=== PATIENT | male | born 1965 | race African-American/Black ===

== ENCOUNTER 2019-08-03 16:47 | Emergency (ER) | payer OTHER ==
[~2019-08-03] VITALS: Ht 175.3 cm; Wt 68.0 kg
[2019-08-03 16:47] VITALS: BP 150/80
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
[2019-08-03] MEDS ORDERED: LET 3ml Soln TOPIC ONE ×2 (17:00→18:49)
[2019-08-03] MEDS ORDERED: Tetanus/Diptheria/Pertussis IM ONE (17:00)
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
[2019-08-03 17:50] LABS: HEMATOCRIT 41.2 % (42.0-52.0); HEMOGLOBIN 14.5 G/DL (14.2-18.0); MEAN CORPUSCULAR VOLUME 96 FL (80-99); PLATELET COUNT 239 K/UL (150-450); RED BLOOD COUNT 4.28 M/UL (4.70-6.10); RED CELL DISTRIBUTION WIDTH 11.5 % (11.6-14.8); WHITE BLOOD COUNT 7.6 K/UL (4.8-10.8)
[2019-08-03 17:53] LABS: BASOPHILS % (AUTO) 0.9 % (0.0-2.0); EOSINOPHILS % (AUTO) 0.2 % (0.0-3.0); LYMPHOCYTES % (AUTO) 7.5 % (20.0-45.0); MONOCYTES % (AUTO) 5.5 % (1.0-10.0); NEUTROPHILS % (AUTO) 85.9 % (45.0-75.0)
--- NOTE | 2019-08-03 17:55 | NUR ---
ED Nurse Note: patient taken to CT
[2019-08-03 17:59] LABS: APPEARANCE,URINE CLEAR; BILIRUBIN, URINE NEGATIVE (NEGATIVE); GLUCOSE, URINE (UA) NEGATIVE (NEGATIVE); KETONES,URINE 1+ (NEGATIVE); LEUKOCYTE ESTERASE ,URINE 1+ (NEGATIVE); NITRITE,URINE NEGATIVE (NEGATIVE); PH,URINE 5 (4.5-8.0); PROTEIN,URINE 3+ (NEGATIVE); UROBILINOGEN,URINE 1 MG/DL (0.0-1.0)
[2019-08-03 18:03] LABS: COLOR,URINE YELLOW
--- NOTE | 2019-08-03 18:07 | NUR ---
ED Nurse Note: patient came back from CT.
[2019-08-03 18:10] LABS: ANION GAP 10 mmol/L (5-15); BLOOD UREA NITROGEN 16 mg/dL (7-18); CARBON DIOXIDE 27 MMOL/L (21-32); CHLORIDE 107 MMOL/L (98-107); CREATININE 1.7 MG/DL (0.55-1.30); POTASSIUM 3.8 MMOL/L (3.5-5.1); SODIUM 144 MMOL/L (136-145)
[2019-08-03 18:21] LABS: ALANINE AMINOTRANSFERASE 28 U/L (12-78); ALBUMIN 4.2 G/DL (3.4-5.0); ALBUMIN/GLOBULIN RATIO 1.4 (1.0-2.7); ALKALINE PHOSPHATASE 55 U/L (46-116); ASPARTATE AMINO TRANSFERASE 23 U/L (15-37); BILIRUBIN,TOTAL 2.1 MG/DL (0.2-1.0)
[2019-08-03 18:22] LABS: BILIRUBIN,DIRECT 0.3 MG/DL (0.0-0.3)
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
[2019-08-03] MEDS ORDERED: Neosporin Oint Ud Pkt TOPIC ONE ×2 (18:50→19:00)
[2019-08-03] MEDS ORDERED: IBUPROFEN600 MG ORAL (19:05)
[2019-08-03] MEDS ORDERED: BACITRACIN15 GM TOPIC (19:05)
[2019-08-03] MEDS ORDERED: KEPPRA500 M4 ORAL (19:05)
[2019-08-03 19:09] VITALS: BP 145/82
[2019-08-03 19:10] VITALS: BP 145/82
--- NOTE | 2019-08-03 19:10 | NUR ---
ER DISCHARGE NOTE: Patient is cleared to be discharged per ERMD DR CHAVEZ, pt is aox4, on room air, with stable vital signs. pt was given dc and prescription instructions, pt was able to verbalize understanding, pt id band and iv site removed without complications. pt is able to ambulate with steady gait. pt took all belongings. patient discharged with [employer] officers
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
== END 2019-08-03 19:10 ==
LOC: EDBD 16:47 → EMR 17:15
DX: S40.012A Contusion of left shoulder, initial encounter (principal); S61.412A Laceration without foreign body of left hand, initial encounter; R47.9 Unspecified speech disturbances; G40.909 Epilepsy, unspecified, not intractable, without status epilepticus; Z59.0 Homelessness; F17.200 Nicotine dependence, unspecified, uncomplicated; F12.10 Cannabis abuse, uncomplicated; Y04.8XXA Assault by other bodily force, initial encounter; Y92.9 Unspecified place or not applicable
CPT/HCPCS: 36415; 70450; 73030; 73130; 80053; 80185; 80299; 80307; 81001; 82248; 85025; 86703; 86803; 87517; 90471; 90715; 96360; 99284; G0480; J7030